=== PATIENT | male | born 1985 | race Caucasian/White ===

== ENCOUNTER 2017-05-19 21:50 | Emergency (ER) | payer MEDICAID ==
[~2017-05-19] VITALS: Ht 180.3 cm; Wt 117.9 kg
[2017-05-19 22:08] VITALS: BP 179/88
--- NOTE | 2017-05-19 22:10 | NUR ---
BIBA TO ER BED 12
--- NOTE | 2017-05-19 22:10 | NUR ---
PATIENT PRESENTS TO ED WITH POSSIBLE SEIZURE ACTIVITY UNWITNESSED BY FAMILY . PT DENIES N/V/D; SKIN IS PINK/WARM/DRY; AAOX4 WITH UNSTEADY GAIT; LUNGS CLEAR BL; HR EVEN AND REGULAR; PT DENIES ANY FEVER, CP, SOB, OR COUGH AT THIS TIME; PATIENT STATES PAIN OF 0/10 AT THIS TIME; VSS; PATIENT POSITIONED FOR COMFORT; HOB ELEVATED; BEDRAILS UP X2; SEIZURE PRECAUTION IN PLACE; BED DOWN. ER MD MADE AWARE OF PT STATUS.
[2017-05-19] MEDS ORDERED: NACL 0.9% 1,000 ML IV ONE (22:30)
[2017-05-19 23:12] LABS: BARBITURATE, URINE NEG. ng/ml (NEG <=200); BENZODIAZEPINE, URINE NEG. ng/mL (NEG <=200); CANNABINOID, URINE POS. ng/mL (NEG <=50); COCAINE, URINE NEG. ng/mL (NEG <=300); OPIATE, URINE NEG. ng/mL (NEG <=2000); PHENCYCLIDINE SCREEN,URINE NEG. ng/mL (NEG <=25)
--- NOTE | 2017-05-19 23:25 | NUR ---
PATIENT TO CT
[2017-05-19 23:27] LABS: HEMATOCRIT 42.3 % (36-52); MEAN CORPUSCULAR HEMOGLOBIN 29 pg (27-31); MEAN CORPUSCULAR HGB CONC 33 g/dL (33-37); MEAN CORPUSCULAR VOLUME 86.4 fL (80-94); PLATELET COUNT (AUTO) 129 K/uL (140-450); RED BLOOD CELL COUNT(AUTO) 4.89 MIL/uL (4.20-6.10); RED CELL DISTRIBUTION WIDTH 13.4 % (11.6-13.7); WHITE BLOOD COUNT (AUTO) 6.9 K/uL (4.8-10.8)
[2017-05-19 23:41] LABS: ACETAMINOPHEN < 0.5 ug/ml (10-30); ALBUMIN 3.6 g/dL (3.4-5.0); ANION GAP 11.7 (8-16); ASPARTATE AMINOTRANSFERASE 37 U/L (15-37); CARBON DIOXIDE 24.3 mmol/L (21-32); CHLORIDE 102 mmol/L (98-107); CREATININE 1.1 mg/dL (0.7-1.3); GFR ARICAN-AMERICAN 102 mL/min (>90); GLUCOSE 259 mg/dL (74-106); SODIUM SERUM 135 mmol/L (136-145); TOTAL BILIRUBIN 0.5 mg/dL (0.0-1.0); UREA NITROGEN, BLOOD 17 mg/dL (7-18)
[2017-05-19 23:51] LABS: SALICYLATE < 2.8 mg/dL (2.8-20.0)
--- NOTE | 2017-05-19 23:55 | NUR ---
PATIENT BACK FROM CT
[2017-05-19 23:57] LABS: PROTHROMBIN TIME 11.8 secs (10.8-13.4)
[2017-05-20] MEDS ORDERED: ACETAMINOPHEN 325 MG TAB PO ONE (02:15)
[2017-05-20] MEDS ORDERED: POTASSIUM CHLORIDE 10 MEQ TABER PO ONE (02:15)
[2017-05-20 02:30] VITALS: BP 148/88
--- NOTE | 2017-05-20 02:30 | NUR ---
Patient discharged with v/s stable. Written and verbal after care instructions given and explained. Patient verbalized understanding. Ambulatory with steady gait. All questions addressed prior to discharge. Advised to follow up with PMD.
== END 2017-05-20 02:30 | disposition home or self-care (01) ==
LOC: MED 21:50
DX: R55 Syncope and collapse (principal); E11.9 Type 2 diabetes mellitus without complications
CPT/HCPCS: 36415; 70450; 80053; 80305; 84484; 85025; 85610; 93005; 99285; G0480; G0482; J7030